=== PATIENT | female | born 1985 | race Caucasian/White ===

== ENCOUNTER 2020-10-14 09:39 | Outpatient (REF) | payer BC, SELFPAY ==
[2020-10-14 15:24] LABS: CT PCR NOT DETECTED (Not Detect.); NG PCR NOT DETECTED (Not Detect.)
[2020-10-15 09:23] LABS: BV Int Neg Control Negative (Negative); BV Int Pos Control Positive (Positive)
== END 2020-10-14 09:40 | disposition home or self-care (01) ==
LOC: HO.LAB 09:39
PROVIDERS: PCP Nurse Practitioner Family; Visit Provider Obstetrics & Gynecology
DX: Z01.411 Encounter for gynecological examination (general) (routine) with abnormal findings (principal); Z11.3 Encounter for screening for infections with a predominantly sexual mode of transmission; R10.2 Pelvic and perineal pain; N76.0 Acute vaginitis; B96.89 Other specified bacterial agents as the cause of diseases classified elsewhere
CPT/HCPCS: 87480; 87491; 87510; 87591; 87660

== ENCOUNTER 2020-11-04 13:57 | Outpatient (REF) | payer OTHER, SELFPAY ==
--- NOTE | ~2020-11-04 | US_ITS ---
EXAMINATION: US PELVIS CLINICAL INFORMATION: Pain COMPARISON: Previous pelvic ultrasound November 2018 TECHNIQUE: Transabdominal pelvic ultrasound was performed. Patient refused transvaginal exam. FINDINGS: The uterus is anteverted and retroflexed and measures 11 x 4 x 4.5 cm in dimension. There is a tiny calcification in the anterior uterine body. No focal uterine lesion is seen. Endometrial thickness is normal measuring 1.1 cm. The ovaries are normal-appearing. The right ovary measures 2.7 x 2.3 x 2.3 cm and the left ovary measures 3.1 x 2.3 x 2.6 cm. There is no fluid in the pelvis. US/US pelvic complete IMPRESSION: Unremarkable exam.
== END 2020-11-04 13:58 | disposition home or self-care (01) ==
LOC: HO.US 13:57
PROVIDERS: Visit Provider Obstetrics & Gynecology
DX: R10.2 Pelvic and perineal pain (principal)
CPT/HCPCS: 76856

== ENCOUNTER → 2020-11-18 11:23 | Outpatient (BNVA) | payer OTHER, SELFPAY | PROVIDERS: PCP Nurse Practitioner Family; Visit Provider Obstetrics & Gynecology ==

== ENCOUNTER 2020-12-25 15:45 | Outpatient (REF) | payer OTHER, SELFPAY ==
--- NOTE | ~2020-12-25 | CT_ITS ---
EXAMINATION: CT ABDOMEN AND PELVIS WITH CONTRAST CLINICAL INFORMATION: Pelvic and perineal pain. COMPARISON: CT abdomen and pelvis with IV contrast 05/25/2017. TECHNIQUE: Multidetector volumetric images were obtained from the superior aspect of the liver through the pubic symphysis following administration 85 mL of Omnipaque 350 intravenous contrast. Sagittal and coronal reformatted images were obtained on the technologist's workstation. Oral contrast: No This CT examination was performed using dose optimization techniques as appropriate, variously including the following: *Automated exposure control *Adjustment of mA and/or kV according to patient size (this includes techniques or standardized protocols for targeted exams where dose is matched to indication/reason for exam; i.e. extremities or head) *Use of iterative reconstruction technique DLP: 328 mGy-cm FINDINGS: LUNG BASES: The lungs are well expanded and clear of acute pneumonic process. LIVER, GALLBLADDER, AND BILIARY TREE: The liver is normal in size, shape, and attenuation. No focal hepatic lesion or biliary ductal dilatation is present. The gallbladder is unremarkable with no evidence of radiopaque gallstones, gallbladder wall thickening, or obvious pericholecystic inflammatory changes. PANCREAS: Unremarkable. SPLEEN: Unremarkable. ADRENAL GLANDS: Unremarkable. KIDNEYS AND URETERS: The kidneys are normal size, shape and position. No focal lesion, radiopaque calculi or hydronephrosis seen. BLADDER: Unremarkable. GASTROINTESTINAL TRACT: There is scattered stool and gas seen throughout the colon without any significant distention. The small bowel loops are normal caliber. Appendix is normal caliber. No free fluid seen. No free air. ABDOMINAL WALL: No significant hernia is appreciated. LYMPH NODES: Normal. VASCULAR: Unremarkable. PELVIC VISCERA: The uterus is anteverted and appears unremarkable. There is a small localized fluid collection in the posterior adnexa measuring 2.6 x 1.8 cm and 8 Hounsfield units on axial image 54/3, likely loculated cyst in the cul-de-sac or a paraovarian cyst. Prominent parauterine and paraovarian vessels similar to previous study, likely venous congestion. OSSEOUS STRUCTURES: Bone windows reveal no lytic or sclerotic process. CT/CT abdomen pelvis w con IMPRESSION: Loculated fluid collection in right pelvis. Question paraovarian adnexal cyst or a loculated fluid collection from previous. Suspect pelvic venous congestion syndrome secondary to prominent pelvic veins. Similar findings were seen on the previous exam 05/25/2017.
[2020-12-25] MEDS: iohexoL 350 MG/ML 100 ML INFUS..BTL IV (16:34)
== END 2020-12-25 15:46 | disposition home or self-care (01) ==
LOC: HO.CT 15:45
PROVIDERS: Visit Provider Obstetrics & Gynecology
DX: R10.2 Pelvic and perineal pain (principal)
CPT/HCPCS: 74177; Q9967

== ENCOUNTER → 2020-12-30 11:14 | Outpatient (BNVA) | payer OTHER, SELFPAY | PROVIDERS: Visit Provider Obstetrics & Gynecology ==

== ENCOUNTER → 2021-02-18 08:19 | Outpatient (BNVA) | payer OTHER, SELFPAY | PROVIDERS: Visit Provider Obstetrics & Gynecology | DX: N90.7 Vulvar cyst (principal) | CPT/HCPCS: 56405 ==

== ENCOUNTER 2021-05-20 15:49 | Outpatient (REF) | payer OTHER, SELFPAY ==
--- NOTE | ~2021-05-20 | US_ITS ---
EXAMINATION: US PELVIS CLINICAL INFORMATION: Pelvic and perineal pain. LMP of 04/22/2021. COMPARISON: CT abdomen and pelvis from 12/25/2020. Pelvic ultrasound from 11/04/2020. TECHNIQUE: Sonographic imaging of the pelvis performed using a transabdominal transducer. educational technologist reports that patient refused transvaginal imaging. FINDINGS: UTERUS AND CERVIX The anteflexed, anteverted uterus measures 10.1 x 4.2 x 5.8 cm ([id number] x AP x transverse dimension). The myometrial echotexture is normal. No evidence of leiomyoma. The cervix, which has a normal appearance, is approximately 3.4 in length. The endometrium is normal and measures 0.8 cm in AP thickness. No endometrial fluid or polyp. ADNEXA: The ovaries have normal size and echotexture. No adnexal masses. The right ovary is 2.7 x 2.5 x 2.3 cm, volume of 8.1 mL. The left ovary is 3.1 x 1.4 x 2.9 cm, volume of 7.2 mL. FREE FLUID: None detected. US/US pelvic complete IMPRESSION: Normal sonographic examination the pelvis. No adnexal mass. No pelvic free fluid.
== END 2021-05-20 15:50 | disposition home or self-care (01) ==
LOC: HO.US 15:49
PROVIDERS: Visit Provider Obstetrics & Gynecology
DX: R10.2 Pelvic and perineal pain (principal)
CPT/HCPCS: 76856

== ENCOUNTER 2021-10-19 10:23 | Outpatient (REF) | payer OTHER, SELFPAY ==
[2021-10-19 14:59] LABS: CT PCR NOT DETECTED (Not Detect.); NG PCR NOT DETECTED (Not Detect.)
[2021-10-20 09:42] LABS: BV Int Neg Control Negative (Negative); BV Int Pos Control Positive (Positive)
== END 2021-10-19 10:24 | disposition home or self-care (01) ==
LOC: HO.LAB 10:23
PROVIDERS: Visit Provider Obstetrics & Gynecology
DX: Z01.419 Encounter for gynecological examination (general) (routine) without abnormal findings (principal); N39.0 Urinary tract infection, site not specified; R31.9 Hematuria, unspecified
CPT/HCPCS: 87086; 87147; 87480; 87491; 87510; 87591; 87660

== ENCOUNTER 2022-01-07 12:54 | Outpatient (REF) | payer OTHER, SELFPAY | END 2022-01-07 12:55 | disposition home or self-care (01) | LOC: HO.LNP 12:54 | PROVIDERS: Visit Provider Obstetrics & Gynecology | DX: R31.9 Hematuria, unspecified (principal) | CPT/HCPCS: 87086; 87147 ==

== ENCOUNTER 2023-03-02 13:42 | Outpatient (AMB) | payer OTHER, SELFPAY ==
[2023-03-02 14:04] VITALS: BP 100/68; BMI 22.3
--- NOTE | 2023-03-02 14:04 | A.OFFVIS_ITS ---
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 Complaining of recurrent UTIs over the last few years. Last Pap/HPV was negative in 11/20 [facility] Surgical History Hx of section Family History Mother Diabetes HTN (hypertension) Osteoporosis Rheumatoid arteritis Paternal Grandfather Colon cancer Other Asthma Social History Household Members: Spouse and Children Housing: House Alcohol intake: never Patient Tobacco Use Status: Never used Tobacco Sexual orientation: Straight/Heterosexual Gender identity: Female Female Reproductive History Menstrual Age of Menarche: 9 Duration of menses: 6-7 days Date of last menstrual period: 02/04/23 control method: none Total pregnancies: 5 Full term: 4 Number of Living Children: 4 Ab spontaneous: 1 Date of last pap smear: 11/13/18 (negative) History of abnormal pap smear: Yes (2013 [facility]) Review of Systems Const All systems reviewed & are unremarkable except as noted in HPI and below Card Reports as per HPI Resp Reports as per HPI GI Reports as per HPI and Reports no additional complaints Reports as per HPI Physical Exam Vital Signs: Last Vital Signs BP 100/68 03/02/23 14:04 BMI result Body Mass Index 22.3 Const General: cooperative, healthy appearing and comfortable Chest Chest palpation & inspection: normal inspection of the chest and normal palpation of entire chest wall Breast/axilla inspection: normal inspection of the breasts and normal inspection of the axillae Breast/axilla palpation: normal palpation of the breasts, normal palpation of the axillae and no axillary lymphadenopathy Resp Effort & Inspection: normal respiratory effort Auscultation: clear to auscultation bilaterally Percussion: percussion normal Cardio Palpation: normal PMI Rate: regular rate Rhythm: regular rhythm Heart sounds: no murmurs and no rubs Peripheral pulses: Peripheral pulses 2+ throughout GI Inspection: Yes normal to inspection Palpation (GI): Soft to palpation, nontender, no guarding, not rigid and No hepatosplenomegaly present Percussion: Yes normal to percussion Auscultation: normal bowel sounds Rectal Exam - Female: deferred General: Yes bladder normal to palpation External Female Exam: No lesion Speculum Exam - Vagina: normal appearance of the vagina, normal palpation, normal vaginal discharge and not erythematous Speculum Exam - Cervix: normal appearance of the cervix and normal palpation Bimanual exam- vagina & uterus: normal bimanual exam, normal palpation, uterine size normal, bladder normal to palpation, consistency normal and normal palpation Bimanual Exam- Adnexa, other: normal adnexae, no masses and no tenderness Assessment & Plan Assessment & Plan (1) Well woman exam: Code(s): Z01.419 - Encounter for gynecological examination (general) (routine) without abnormal findings Plan: Cotesting not indicated this year. Counseled the patient about the recommended dietary allowance of 1000 mg of Calcium & 600 IU of vitamin D. The patient was instructed to perform monthly self-breast exams and to schedule an annual exam in a year; All questions answered and the patient verbalized understanding. Instructed the patient to schedule annual exam in a year (2) Recurrent UTI: Code(s): N39.0 - Urinary tract infection, site not specified Plan: Discussed with the patient different possible causes of recurrent UTIs and its workup. Will refer to Urology for further management Orders: Referrals Urology Referral N39.0 - Urinary tract infection, site not specified Coding Level of Care Code Est Pt Prev Care 18-39y(51589) Diagnoses Well woman exam Z01.419 Recurrent UTI N39.0
== END 2023-03-02 15:14 | disposition home or self-care (01) ==
LOC: HO.HWS 13:42
PROVIDERS: Visit Provider Obstetrics & Gynecology
DX: Z01.419 Encounter for gynecological examination (general) (routine) without abnormal findings (principal); N39.0 Urinary tract infection, site not specified
CPT/HCPCS: 99395

== ENCOUNTER → 2023-03-02 13:42 | Outpatient (BNVA) | payer OTHER, SELFPAY | PROVIDERS: Visit Provider Obstetrics & Gynecology ==

== ENCOUNTER 2024-11-27 05:59 | Emergency (ER) | payer OTHER, SELFPAY ==
--- NOTE | ~2024-11-27 | CT_ITS ---
EXAMINATION: CT ABDOMEN PELVIS WITHOUT IV CONTRAST HISTORY: left flank pain and hematuria COMPARISON: Comparison is made with the prior examination dated 12/25/2020. TECHNIQUE: CT scan of the abdomen and pelvis was performed without contrast using standard departmental protocol. Coronal and sagittal reformatted images were generated and reviewed. Oral contrast material was not administered per department protocol. This CT exam was performed with one or more of the following dose reduction techniques: automated exposure control, adjustment of the mA and/or kV according to patient size, use of iterative reconstruction technique. DLP: 309 mGy-cm FINDINGS: LOWER CHEST: The visualized lung bases are clear. There is no pleural effusion. CARDIOVASCULATURE: The heart is normal in size. There is no pericardial effusion. LIVER: The liver is normal in size and contour. The liver has an unremarkable unenhanced appearance. GALLBLADDER / BILE DUCTS: The gallbladder is unremarkable. There is no intra or extrahepatic biliary ductal dilatation. SPLEEN: The spleen is normal in size and has an unremarkable unenhanced appearance. PANCREAS: The pancreas has an unremarkable unenhanced appearance. ADRENAL GLANDS: Unremarkable. KIDNEYS/RETROPERITONEUM: There may be punctate nonobstructing calculi in both kidneys. No ureteral calculi are identified. There is no hydronephrosis or hydroureter. LYMPH NODES: No retroperitoneal lymphadenopathy is identified in the abdomen or pelvis. VASCULATURE: The abdominal aorta is normal in caliber. MESENTERY/PERITONEUM: No free fluid. No masses. There is no free intraperitoneal gas. STOMACH: The stomach is collapsed, limiting evaluation. SMALL BOWEL: The small bowel is normal in caliber. COLON: There is a moderate amount of stool throughout the colon. APPENDIX: Normal. URINARY BLADDER/PELVIC ORGANS: There is a 2-3 mm calculus in the dependent portion of the urinary bladder to the right of midline. Given that the patient's flank pain is on the left, this may represent a recently passed calculus. The uterus has an unremarkable unenhanced appearance. BONES / SOFT TISSUES: No suspicious bony or soft tissue abnormalities. CT/CT abdomen pelvis wo IV con IMPRESSION: Probable punctate nonobstructing calculi in both kidneys. No hydroureteronephrosis. A 2-3 mm calculus in the dependent portion of the urinary bladder to the right of midline may represent a recently passed calculus. Clinical correlation is recommended. Electronically signed by: Sarthak Lei MD 11/27/2024 08:32 AM EDT RP
[2024-11-27 06:05] VITALS: BP 121/63; PULSE 91; RESP 16; TEMP 36.4; O2SAT 100; BMI 22.4
[2024-11-27 06:23] VITALS: BP 123/86; PULSE 103; RESP 19; O2SAT 100
--- NOTE | 2024-11-27 06:34 | PC.NURSE ---
verbal order by MD Diane for IV toradol, zofran and NS.
[2024-11-27 06:41] LABS: MANUAL DIFF FLAG NO
[2024-11-27 06:42] LABS: Appearance Urine Clear; Glucose Urine UA Negative (Negative); PH 6.5 (5.0-9.0); Specific Gravity - Urine 1.025 (1.005-1.025); UMIC TRIGGER UACC YES
[2024-11-27 06:45] LABS: Hematocrit 33.7 % (37.0-47.0); Hemoglobin 10.7 g/dl (12.0-16.0); Imm Gran Abs Auto 0.01 X10*3/uL (0.00-0.03); Imm Gran Pct Auto 0.3 % (0.0-0.4); Lymphocytes Absolute Auto 1.8 X10*3/uL (1.2-4.9); Mean Corpuscular HGB Conc 31.8 g/dl (31.0-35.0); Mean Corpuscular Hemoglobin 23.9 pg (27.0-33.0); Mean Corpuscular Volume 75.4 fL (80.0-98.0); NRBC Abs Auto 0.000 X10*3/uL (0.0-0.012); NRBC Pct Auto 0.0 /100WBC (0.0-0.2); Platelet Count 188 X10*3/uL (160-400); Red Blood Count 4.47 X10*6/uL (4.20-5.50); White Blood Count 3.7 X10*3/uL (4.8-10.8)
--- OUTSIDE RECORDS SUMMARY | 2024-11-27 07:01 | XMS_ITS | Clinical Summary ---
Author Organization [facility] Address [address] [place] [address] Phone Care Team Providers Care Dye Tank Tender Name Role Phone Unavailable Primary Care Provider Unavailabl e Immunizations Immunization Administration Dates Next Due DTP 12/02/1997, 5,06/01/1994,12/02,04/03/1990 Hep B, ped/adol 05/03/2000,12/24/1999,07/18/1998 Hib (HbOC) 02/02/1996 IPV 12/02/1997, 6,06/01/1994,12/02,08/01/1990 MMR 04/25/1995,04/03/1990 Meningococcal Polysaccharide 11/14/2003 Td (adult) (Teniva), 5 Lf t etanus toxoid, PF, adsorbed 07/18/1998 Social History Tobacco Use Types Packs/Day Years Used Date Smoking Tobacco: Never Assessed Comments Unknown Sex and Gender Information Value Date Recorded Sex Assigned at Not on file Legal Sex Female 4:44 PM EDT Gender Identity Not on file Sexual Orientation Not on file Plan of Treatment Health Maintenance Due Date Last Done Comments Varicella Vaccines (1 of 2 - 13+ 2-dose series) 09/11/1996 DTaP,Tdap,and Td Vaccines (7 - Tdap) 07/18/2008 07/18/1998, 12/02/1997, 03/03/1995, Additional history exists HPV Vaccines (1 - 3-dose SCDM series) 09/11/2010 COVID-19 Vaccine ( - 2023- season) 2023 Influenza Vaccines (#1) 2024 MMR Vaccines Completed 04/25/1995, 04/03/1990 HIB Vaccines Aged Out 02/02/1996 No longer eligi ble based on patient's age to complete this topic IPV Vaccines Completed 12/02/1997, 08/04, 06/01/1994, Additional history exists Hepatitis B Vaccines Completed 05/03/2000, 12/24/1999, 07/18/1998 Hepatitis A Vaccines Aged Out No long er eligible based on patient's age to complete this topic Men B Vaccine Aged Out No longer elig ible based on patient's age to complete this topic Meningococcal Vaccine Aged Out No heather denise eligible based on patient's age to complete this topic Pneumococcal Vaccine Aged Out No long er eligible based on patient's age to complete this topic
[2024-11-27 07:06] LABS: Alanine Aminotransferase 17 U/L (0-31); Albumin Level 4.6 g/dL (3.5-5.0); Alkaline Phosphatase 44 U/L (39-117); Anion Gap 15 (12-20); Aspartate Amino Transferase 27 U/L (5-31); Blood Urea Nitrogen 12 mg/dL (9-16); Calcium 9.1 mg/dL (8.4-10.2); Carbon Dioxide 22 mmol/L (22-29); Chloride 107 mmol/L (96-108); Creatinine Clr Calc Pharmacy 86.4; Estimated Glomerular Filt Rate > 60; Lipase 35 U/L (8-78); Potassium 3.8 mmol/L (3.3-5.1); Sodium 140 mmol/L (135-145); Total Protein 7.5 g/dL (6.5-8.0)
--- NOTE | 2024-11-27 07:19 | ED_ITS ---
HPI - Female Genitourinary General Chief complaint: Urogenital-Female Stated complaint: back pain, n/v Time Seen by Provider: 11/27/24 07:13 Source: patient Mode of arrival: ambulatory Limitations: no limitations History of Present Illness ED Provider: DR. Govea HPI Narrative: A 39-year-old female came in for evaluation of a sudden onset of left flank pain started at 04:30 a.m. wake the patient up from sleep, pain was severe 10/10 localized to her left flank area and vomiting x3, patient noticed yesterday to have frequency urination but no dysuria or hematuria. No fever, no chills, normal bowel movement this morning, passing flatus normally. History of 3 C-sections, declined chance of being today. Related Data Home Medications ?Medication ?Instructions ?Recorded ?Confirmed cephalexin 500 mg capsule 500 mg PO QID 03/02/23 Allergies Allergy/AdvReac Type Severity Reaction Status Date / Time latex (Latex) Allergy Unknown RASH Verified 11/27/24 06:05 Dairy Digestive Allergy Unknown Abdominal Uncoded 11/27/24 06:05 Pain Latex Allergy Unknown Rash Uncoded 11/27/24 06:05 Review of Systems 2 Review of Systems: All other systems are reviewed and are negative Constitutional: Reports as per HPI and Reports no additional constitutional complaints Eyes: Reports as per HPI and Reports no additional eye complaints Reports system reviewed and no additional complaints, except as documented Cardiovascular: Reports as per HPI and Reports no additional cardiovascular complaints Respiratory: Reports as per HPI and Reports no additional respiratory complaints Gastrointestinal: Reports as per HPI and Reports no additional gastrointestinal complaints Genitourinary: Reports no additional female genitourinary complaints Musculoskeletal: Reports no additional musculoskeletal complaints Skin/Breast: Reports system reviewed and no additional complaints, except as docu Psychiatric: Reports no additional psychiatric complaints Endocrine: Reports no additional endocrine complaints Hematologic/Lymphatic: Reports no additional hematologic/lymphatic complaints Allergic/Immunologic: Reports no additional allergic/immunologic complaints Reports system reviewed and no additional complaints, except as documented and Reports Abnormal speech present [facility] Past Medical History Surgical History Hx of section Family History Family History Mother Diabetes HTN (hypertension) Osteoporosis Rheumatoid arteritis Paternal Grandfather Colon cancer Other Asthma Social History Social History Household Members: Spouse and Children Housing: House Alcohol intake: never Patient Tobacco Use Status: Never used Tobacco Smoked in Last 30 Days: No Use of substances other than those prescribed or required for medical reasons: No Advance Directives: No Advance Directives Information Provided: Yes Sexual orientation: Straight/Heterosexual Gender identity: Female Physical Exam 2 Vital Signs: Vital Signs: Last Vital Signs Temp 97.5 F 11/27/24 06:05 Pulse 67 11/27/24 08:22 Resp 16 11/27/24 08:22 BP 99/68 11/27/24 08:22 Pulse Ox 99 11/27/24 08:22 O2 Del Method Room Air 11/27/24 08:22 BMI result Body Mass Index 22.4 Vital signs have been reviewed and appear to be correct. Blood pressure elevated. Heart rate normal. Respiratory rate normal. Temperature normal. Oxygen saturation normal. Appearance: Alert. Oriented X3. No acute distress. Head: Normal external exam. Normocephalic. Atraumatic. No Whipple signs noted. No raccoon eyes noted Eyes: PERRLA. EOMI. Conjunctiva and sclera normal. Eyelids normal. ENT: TM's Normal. Pharynx normal. Uvula midline. Moist mucous membranes. No trismus noted. No drooling noted. No muffled voice noted. Neck: Normal inspection. Neck supple. FROM. No adenopathy. Thyroid Normal. No meningeal signs. No neck mass noted. CVS: Normal heart rate and rhythm. Heart sound normal. No murmurs noted. Pulses normal throughout. Respiratory: No respiratory distress. Painless inspiration. Breath sounds normal. No wheezes/rales/rhonchi noted. Chest nontender. No accessory muscle usage noted or decreased air movement noted. Abdomen: Soft and nontender. Bowel sounds normal in all 4 quadrants. No distention noted. No organomegaly noted. No visible injury noted. Back: Left CVA tenderness. Full range of motion noted. Skin: Skin warm and dry. Normal skin color. Normal skin turgor. No rashes/lesions/lacerations noted. Extremities: No lower extremity edema. Extremities exhibit normal range of motion. Extremities nontender. Neuro: Oriented X 3. Cranial nerve exam: II-XII are grossly intact No motor deficit. No sensory deficit. Reflexes normal. Course Reevaluation(s) Reevaluation #1: Feels better, no pain, CT reveals 2-3 mm stone in the urinary bladder likely recently passed stone, patient was instructed to drink plenty of fluids and take ibuprofen for any discomfort. Time: 09:10 Medications Administered Discontinued Medications Generic Name Dose Route Start Last Admin Trade Name Freq PRN Reason Stop Dose Admin Sodium Chloride 1,000 mls @ 999 mls/hr 11/27/24 06:45 11/27/24 08:27 Ns IV 11/27/24 07:45 Infused .Q1H1M VIVIAN Infusion Ketorolac Tromethamine 15 mg 11/27/24 06:33 11/27/24 06:40 Ketorolac Tromethamine 15 Mg/Ml Vial IVPUSH 11/27/24 06:34 15 mg ONCE ONE Administration Ondansetron HCl 4 mg 11/27/24 06:34 11/27/24 06:40 Ondansetron Hcl 4 Mg/2 Ml Vial IVPUSH 11/27/24 06:35 4 mg ONCE ONE Administration Medical Decision Making Differential Diagnosis Differential Diagnoses: The differential diagnosis associated with the presentation includes (Pancreatitis, colitis, diverticulitis, pyelonephritis, UTI, kidney stone.) Admission/Observation Consideration of admission/observation: Escalation of care including admission/observation considered Lab Data MDM Lab Attestation statement: I reviewed the patient's lab results. 11/27/24 06:30 11/27/24 06:33 Labs: Lab Results 11/27/24 11/27/24 11/27/24 Range/Units 06:28 06:30 06:33 WBC 3.7 L (4.8-10.8) X10*3/uL RBC 4.47 (4.20-5.50) X10*6/uL Hgb 10.7 L (12.0-16.0) g/dl Hct 33.7 L (37.0-47.0) % MCV 75.4 L (80.0-98.0) fL MCH 23.9 L (27.0-33.0) pg MCHC 31.8 (31.0-35.0) g/dl RDW 15.9 (11.0-16.0) % Plt Count 188 (160-400) X10*3/uL MPV 11.8 (9.4-12.3) fL Immature Gran % (Auto) 0.3 (0.0-0.4) % Neut % (Auto) 36.4 L (45-73) % Lymph % (Auto) 48.8 H (20-40) % [place] % (Auto) 10.4 (2-11) % Eos % (Auto) 3.8 (0-4) % Baso % (Auto) 0.3 (0-2) % Lymph # (Auto) 1.8 (1.2-4.9) X10*3/uL [place] # (Auto) 0.4 (0.1-1.2) X10*3/uL Eos # (Auto) 0.1 (0.0-0.4) X10*3/uL Baso # (Auto) 0.0 (0.0-0.2) X10*3/uL Abs Immat Gran (auto) 0.01 (0.00-0.03) X10*3/uL Absolute Neuts (auto) 1.3 L (2.0-8.3) x10*3/uL Absolute Nucleated RBC 0.000 (0.0-0.012) X10*3/uL Nucleated RBC % (auto) 0.0 (0.0-0.2) /100WBC Sodium 140 (135-145) mmol/L Potassium 3.8 (3.3-5.1) mmol/L Chloride 107 (96-108) mmol/L Carbon Dioxide 22 (22-29) mmol/L Anion Gap 15 (12-20) BUN 12 (9-16) mg/dL Creatinine 0.74 (0.5-1.4) mg/dL Estim Creat Clear Calc 86.4 Estimated GFR > 60 Random Glucose 122 H (60-115) mg/dL Calcium 9.1 (8.4-10.2) mg/dL Total Bilirubin 0.7 (0.0-1.0) mg/dL AST 27 (5-31) U/L ALT 17 (0-31) U/L Alkaline Phosphatase 44 (39-117) U/L Total Protein 7.5 (6.5-8.0) g/dL Albumin 4.6 (3.5-5.0) g/dL Lipase 35 (8-78) U/L Beta HCG, Quant < 2 mIU/mL Urine Color Yellow Urine Appearance Clear Urine pH 6.5 (5.0-9.0) Ur Specific [place] 1.025 (1.005-1.025) Urine Protein Trace (Neg-Trace) mg/dL Urine Glucose (UA) Negative (Negative) mg/dL Urine Ketones 15 (Negative) mg/dL Urine Blood Small (1+) H (Negative) Urine Nitrite Negative (Negative) Ur Leukocyte Esterase Trace H (Negative) Urine RBC 6-10 H (0-2) /HPF Urine WBC 0-5 (0-5) /HPF Ur Squamous Epith Cells 3-5 (0-2) /HPF Urine Bacteria None Seen (None Seen) Hyaline Casts 0-2 (0-2) /LPF Independent Interpretation I performed an independent interpretation of an: CT Scan (Abdomen and pelvis:Probable punctate nonobstructing calculi in both kidneys. No hydroureteronephrosis. A 2-3 mm calculus in the dependent portion of the urinary bladder to the right of midline may represent a recently passed calculus. Clinical correlation is recommended.) Radiology Impression Discussion of test interpretation with radiology: I have reviewed the radiologist's reading. Discharge Plan Discharge Clinical Impression: Renal colic Patient Disposition: Home, Self-Care Instructions: Renal Colic (ED) Additional Instructions: Drink plenty of fluids. Prescriptions: No Action cephalexin 500 mg capsule 500 mg PO QID Print Language: Faroese
[2024-11-27 08:22] VITALS: BP 99/68; PULSE 67; RESP 16; O2SAT 99
[2024-11-27 09:54] VITALS: BP 99/68; PULSE 67; RESP 16; TEMP 36.8; O2SAT 99
== END 2024-11-27 10:03 | disposition home or self-care (01) ==
PROVIDERS: Emergency Provider Emergency Medicine
DX: N23 Unspecified renal colic (principal); M54.50 Low back pain, unspecified; R11.2 Nausea with vomiting, unspecified; R35.0 Frequency of micturition; Z79.899 Other long term (current) drug therapy
CPT/HCPCS: 36415; 74176; 80053; 81001; 83690; 84702; 85025; 96361; 96374; 96375; 99284; 99285; J1885; J2405

== ENCOUNTER → 2024-11-27 07:19 | Outpatient (BNV) | payer OTHER, SELFPAY | PROVIDERS: Emergency Provider Emergency Medicine; Visit Provider Radiology Diagnostic Radiology | DX: R10.12 Left upper quadrant pain (principal); R31.9 Hematuria, unspecified | CPT/HCPCS: 74176 ==